=== PATIENT | female | born 1965 | race African-American/Black ===

== ENCOUNTER 2023-09-11 15:34 | Inpatient (IN) | payer OTHER ==
[2023-09-11] MEDS ORDERED: VANCOMYCIN HCL 1,500 MG in DEXTROSE 5%-WATER - 500 ML IVPB ONE (16:27)
[2023-09-11 17:06] LABS: BASO % 1.1 % (0-2.0); EOS % 0.6 % (0-4.5); HEMATOCRIT 33.5 % (32.4-45.2); HEMOGLOBIN 10.7 GM/dL (10.7-15.3); LYMPH % 24.7 % (8-40); MCHC 31.8 g/dl (32.0-36.0); MEAN CELL VOLUME 84.8 fl (80-96); MONO % 7.6 % (3.8-10.2); PLATELET COUNT 275 10^3/uL (134-434); RBC 3.96 M/mm3 (3.60-5.2); RDW 16.2 % (11.6-15.6); WHITE BLOOD COUNT 6.2 K/mm3 (4.0-10.0)
[2023-09-11] MEDS ORDERED: PIPERACILLIN/TAZOB 4.5 GM 4.5 GM/100 ML BAG IVPB ONE (17:16)
[2023-09-11] MEDS: PIPERACILLIN/TAZOB 4.5 GM 4.5 GM in DEXTROSE 5%-WATER 100 ML IVPB ONE (17:22)
[2023-09-11 18:00] LABS: CHLORIDE 106 mmol/L (98-107); SODIUM 130 mmol/L (136-145)
[2023-09-11 18:04] LABS: GLUCOSE,RANDOM 81 mg/dL (74-106)
[2023-09-11 18:05] LABS: CALCIUM 8.1 mg/dL (8.5-10.1)
[2023-09-11 18:06] LABS: ALBUMIN 2.3 g/dl (3.4-5.0); CO2 25 mmol/L (21-32)
[2023-09-11 18:09] LABS: CREATININE 0.9 mg/dL (0.55-1.3)
[2023-09-11 18:11] LABS: BILIRUBIN,TOTAL 0.6 mg/dL (0.2-1); TOT PROT 6.9 g/dl (6.4-8.2)
[2023-09-11 18:12] LABS: ALK PHOS 123 U/L (45-117)
[2023-09-11 18:15] LABS: ANION GAP -1 mmol/L (4-13); POTASSIUM > 10.0 mmol/L (3.5-5.1); SGOT/AST 128 U/L (15-37); SGPT/ALT 53 U/L (13-61)
[2023-09-11 20:09] LABS: POTASSIUM 3.8 mmol/L (3.5-5.1)
[2023-09-11 20:14] LABS: CREATININE 0.8 mg/dL (0.55-1.3)
[2023-09-11] MEDS: VANCOMYCIN PREMIX 1.5 GM 1,500 MG/300 ML BAG IVPB ONE (20:23)
[2023-09-11] MEDS: LACTATED RINGERS SOLUTION 1,000 ML/1,000 ML INFUS.BAG IV SCH (20:24)
[2023-09-11 20:53] VITALS: BMI 31.7
[2023-09-11] MEDS: ACETAMINOPHEN 500 MG TABLET (FP) PO PRN (22:09)
[2023-09-11] MEDS: DOXYCYCLINE INJECTION 100 MG in DEXTROSE 5%-WATER 100 ML IVPB SCH (22:55)
[2023-09-12] MEDS: KETOROLAC TROMETHAMINE 15 MG/ML VIAL IVPUSH PRN (03:39)
[2023-09-12] MEDS: ENOXAPARIN NA (PORCINE) 40 MG/0.4 ML DISP.SYRIN SQ SCH (11:13)
[2023-09-12] MEDS: AMMONIUM LACTATE 12% LOTION 225 GM BOTTLE TP SCH (14:03)
[2023-09-12] MEDS: CEFTRIAXONE 1 GM in DEXTROSE 5%-WATER - 50 ML IVPB SCH (14:49)
[2023-09-13] MEDS: FUROSEMIDE 20 MG TABLET (FP) PO ONE (09:12)
[2023-09-13 09:39] LABS: BASO % 1.2 % (0-2.0); EOS % 1.7 % (0-4.5); HEMATOCRIT 30.8 % (32.4-45.2); HEMOGLOBIN 9.9 GM/dL (10.7-15.3); MCH 27.4 pg (25.7-33.7); MCHC 32.2 g/dl (32.0-36.0); MEAN CELL VOLUME 85.2 fl (80-96); MEAN PLT VOLUME 8.5 fl (7.5-11.1); MONO % 11.1 % (3.8-10.2); PLATELET COUNT 234 10^3/uL (134-434); RBC 3.61 M/mm3 (3.60-5.2); RDW 15.8 % (11.6-15.6); WHITE BLOOD COUNT 5.6 K/mm3 (4.0-10.0)
[2023-09-13 10:09] LABS: CALCIUM 7.7 mg/dL (8.5-10.1)
[2023-09-13 10:10] LABS: BLOOD UREA NITROGEN 15.1 mg/dL (7-18)
[2023-09-13 10:11] LABS: CREATININE 0.6 mg/dL (0.55-1.3)
[2023-09-13] MEDS: CALCIUM ACETATE/AL SULFATE TOP 1.9 GM/PACKET PACKET TP SCH (12:23)
[2023-09-13] MEDS: GABAPENTIN 100 MG CAPSULE PO SCH (13:09)
[2023-09-13 22:11] VITALS: RESP 18
[2023-09-15] MEDS: GABAPENTIN 100 MG CAPSULE PO SCH (13:28)
[2023-09-16] MEDS: FUROSEMIDE 40 MG/4 ML INJECTABLE VIAL IVPUSH ONE (08:49)
[2023-09-16 09:07] VITALS: BP 138/84; PULSE 69; TEMP 97.8
[2023-09-16 09:35] LABS: BASO % 1.2 % (0-2.0); HEMATOCRIT 31.7 % (32.4-45.2); HEMOGLOBIN 10.1 GM/dL (10.7-15.3); LYMPH % 23.2 % (8-40); MCH 27.7 pg (25.7-33.7); MCHC 31.8 g/dl (32.0-36.0); MEAN CELL VOLUME 87.1 fl (80-96); MEAN PLT VOLUME 8.8 fl (7.5-11.1); MONO % 14.3 % (3.8-10.2); NEUT % 59.3 % (42.8-82.8); PLATELET COUNT 216 10^3/uL (134-434); RBC 3.64 M/mm3 (3.60-5.2); RDW 16.4 % (11.6-15.6); WHITE BLOOD COUNT 5.8 K/mm3 (4.0-10.0)
[2023-09-16 09:54] LABS: POTASSIUM 3.7 mmol/L (3.5-5.1)
[2023-09-16 10:12] LABS: CALCIUM 7.7 mg/dL (8.5-10.1)
[2023-09-16 10:13] LABS: BLOOD UREA NITROGEN 12.8 mg/dL (7-18)
[2023-09-16 10:16] LABS: CREATININE 0.6 mg/dL (0.55-1.3)
== END 2023-09-16 14:40 | disposition home or self-care (01) | DRG 603 ==
LOC: JER 15:34 → JERBED 16:28 → J7W 18:26 → OBSVTOIN 09-13 13:49
PROVIDERS: ADMIT Internal Medicine; ATTEND Internal Medicine
DX: L03.116 Cellulitis of left lower limb (principal); L03.115 Cellulitis of right lower limb; I10 Essential (primary) hypertension; E66.9 Obesity, unspecified; Z68.31 Body mass index [BMI] 31.0-31.9, adult
CPT/HCPCS: 36415; 80048; 80053; 83605; 85025; 87040; 93971-TC; 97116-GP; 99285-25; G0378

== ENCOUNTER 2023-09-17 12:46 | Emergency (ER) | payer OTHER ==
[2023-09-17] MEDS ORDERED: ACETAMINOPHEN 500 MG TABLET (FP) ONE (13:19)
[2023-09-17] MEDS: ACETAMINOPHEN 500 MG TABLET (FP) PO ONE (13:20)
[2023-09-17 13:28] VITALS: BP 152/79; PULSE 93; RESP 17; TEMP 98.3; BMI 30.5
== END 2023-09-17 14:26 | disposition home or self-care (01) ==
LOC: JERFT 12:46 → JER 12:46 → JERFT 14:26
DX: S70.12XA Contusion of left thigh, initial encounter (principal); M79.632 Pain in left forearm; W10.0XXA Fall (on)(from) escalator, initial encounter; Y92.238 Other place in hospital as the place of occurrence of the external cause
CPT/HCPCS: 73090-TC-LT-FY; 73110-TC-LT-FY; 73130-TC-LT-FY; 73552-TC-LT-FY; 73562-TC-LT-FY; 99284-25

== ENCOUNTER → 2024-02-03 | Day surgery (SDC) | payer OTHER | END | disposition home or self-care (01) | LOC: JRADIR 11:31 | PROVIDERS: ATTEND Surgery | PROC: 0J9M3ZX Drainage of Left Upper Leg Subcutaneous Tissue and Fascia, Percutaneous Approach, Diagnostic (ICD-10-PCS; principal; 2024-02-03) | DX: R60.9 Edema, unspecified (principal) | CPT/HCPCS: 10030; 76942-TC; 87070; 87075; 87102; 87116; 87205; 87206; 87210 ==

== ENCOUNTER 2024-02-23 11:29 | Emergency (ER) | payer OTHER ==
[2024-02-23 11:39] VITALS: BP 114/76; PULSE 90; RESP 18; TEMP 97.9; BMI 29.2
[2024-02-23] MEDS ORDERED: ACETAMINOPHEN 500 MG TABLET (FP) ONE ×2 (13:15→13:16)
[2024-02-23] MEDS: ACETAMINOPHEN 500 MG TABLET (FP) PO ONE (13:16)
== END 2024-02-23 13:18 | disposition home or self-care (01) ==
LOC: JERFT 11:29
DX: S20.212A Contusion of left front wall of thorax, initial encounter (principal); R07.89 Other chest pain; W10.9XXA Fall (on) (from) unspecified stairs and steps, initial encounter
CPT/HCPCS: 71101-TC-LT-FY; 99283-25

== ENCOUNTER 2024-03-06 13:21 | Emergency (ER) | payer OTHER ==
[2024-03-06 13:43] VITALS: BP 127/74; PULSE 85; RESP 20; TEMP 98.3; BMI 28.1
[2024-03-06] MEDS ORDERED: ACETAMINOPHEN 325 MG TABLET (FP) ONE (15:40)
[2024-03-06] MEDS ORDERED: DIPHTH,PERTUSS(ACELL),TET 0.5 ML DISP.SYRIN IM ONE (15:42)
[2024-03-06] MEDS: DIPHTH,PERTUSS(ACELL),TET 0.5 ML DISP.SYRIN IM ONE (15:48)
[2024-03-06] MEDS: ACETAMINOPHEN 325 MG TABLET (FP) PO ONE (15:51)
== END 2024-03-06 16:17 | disposition home or self-care (01) ==
LOC: JER 13:21
PROC: 0HQ1XZZ Repair Face Skin, External Approach (ICD-10-PCS; principal; 2024-03-06)
PROC: 3E0234Z Introduction of Serum, Toxoid and Vaccine into Muscle, Percutaneous Approach (ICD-10-PCS; 2024-03-06)
DX: S01.81XA Laceration without foreign body of other part of head, initial encounter (principal); W01.111A Fall on same level from slipping, tripping and stumbling with subsequent striking against power tool or machine, initial encounter; Z23 Encounter for immunization
CPT/HCPCS: 70450-TC; 90715; 99284-25

== ENCOUNTER 2024-03-12 16:42 | Emergency (ER) | payer OTHER ==
[2024-03-12 16:49] VITALS: BP 109/72; PULSE 92; RESP 16; TEMP 98.8; BMI 29.0
== END 2024-03-12 17:37 | disposition home or self-care (01) ==
LOC: JERFT 16:42
DX: Z48.02 Encounter for removal of sutures (principal)
CPT/HCPCS: 99281-25